=== PATIENT | female | born 1970 | race Caucasian/White ===

== ENCOUNTER 2021-08-27 18:03 | Emergency (ER) | payer MEDICAID ==
[~2021-08-27] VITALS: Ht 144.8 cm; Wt 59.0 kg
--- NOTE | 2021-08-27 18:03 | NUR ---
PT RAFIQ VIA GURNEY TO BED 11.
[2021-08-27 18:08] VITALS: BP 130/90
--- NOTE | 2021-08-27 18:40 | NUR ---
51/F [facility]FIQ FROM [facility]. PER EMS STAFF AT [facility]RGENT CARE CALLED 911 STATING PATIENT HAD LOW O2 SATS. PER EMS PATIENT SHOWED NO SIGNS OF DISTRESS ON SCENE AND WAS PLACED ON 3L NC. PATIENT REPORTS HX OF COVID 1 YEAR AGO, STATES SHE IS ON CONSTANT 2-3 O2 VIA NC SINCE BUT STATES SHE DID NOT TAKE HER O2 WITH HER TO HER APPOINTMENT. PATIENT DENIES CP OR SOB UPON ARRIVAL STATING "I FEEL BETTER." PATIENT REPORTS FEELING SOB WHEN EXCESSIVELY TALKING OR WALKING BUT STATES THIS HAS BEEN HER BASELINE. UPON ARRIVAL TO ED PATIENT PLACED ON BEDSIDE ARRT TECHNOLOGIST, DR. GALICIA AWARE OF PATIENT.
[2021-08-27 19:20] VITALS: BP 120/91
--- NOTE | 2021-08-27 19:21 | NUR ---
Patient discharged with v/s stable. Written and verbal after care instructions ABOUT HYPOXIA given and explained. Patient verbalized understanding. Ambulatory with steady gait. All questions addressed prior to discharge. Advised to follow up with PMD.
--- NOTE | 2021-08-27 19:24 | NUR ---
Pt report given to FELIPE DSOUZA. Transfer of care at this time. PATIENT IN BED AWAITING RIDE HOME FROM SISTER.
== END 2021-08-27 19:21 | disposition home or self-care (01) ==
LOC: MED 18:03
DX: R09.02 Hypoxemia (principal); E11.9 Type 2 diabetes mellitus without complications; I10 Essential (primary) hypertension
CPT/HCPCS: 71045; 99283; Q0092